=== PATIENT | female | born 1990 | race Caucasian/White ===

== ENCOUNTER 2016-10-31 07:44 | Emergency (ER) | payer OTHER, MEDICAID ==
[~2016-10-31 07:44] MED LIST: CYCL1TAB29 PO; DICL50TA3 PO; FERR325T PO; METO25TA6 PO; NAPR250T PO; VITA400C28 PO
[2016-10-31 07:48] VITALS: BP 157/78; PULSE 91; RESP 18; TEMP 97.9; O2SAT 99
--- NOTE | 2016-10-31 08:19 | RADRPT ---
EXAM DATE/TIME: 10/31/2016 07:52 [facility] COMPARISON: CHEST SINGLE AP, November 11, 2015, 23:52. INDICATIONS : Patient states chest pain and short of breath since this morning. MEDICAL HISTORY : None. SURGICAL HISTORY : None. ENCOUNTER: Initial ACUITY: 1 day PAIN SCORE: 7/10 LOCATION: chest Center FINDINGS: A single view of the chest demonstrates the lungs to be symmetrically aerated without evidence of mas s, infiltrate or effusion. The cardiomediastinal contours are unremarkable. Osseous structures are intact. CONCLUSION: No acute disease. Anthony Duff MD on October 31, 2016 at 8:17 Board Certified Radiologist. This report was verified electronically.
[2016-10-31 08:29] LABS: AUTOMATED NEUTROPHIL # 9.9 TH/MM3 (1.8-7.7); BASOPHIL % 0.3 % (0.0-2.0); EOSINOPHIL # 0.2 TH/MM3 (0-0.4); EOSINOPHIL % 1.2 % (0.0-4.0); HEMATOCRIT 38.1 % (35.0-46.0); LYMPH % 20.9 % (9.0-44.0); LYMPHOCYTE # 2.8 TH/MM3 (1.0-4.8); MEAN CELL VOLUME 82.2 FL (80.0-100.0); MEAN CORPUSCULAR HEMOGLOBIN 27.8 PG (27.0-34.0); MEAN CORPUSCULAR HGB CONC 33.8 % (32.0-36.0); MONO % 4.4 % (0.0-8.0); NEUT % 73.2 % (16.0-70.0); PLATELET COUNT 257 TH/MM3 (150-450); RED BLOOD COUNT 4.63 MIL/MM3 (4.00-5.30); RED CELL DISTRIBUTION WIDTH 14.3 % (11.6-17.2)
[2016-10-31 08:39] LABS: HEMO FLAGS AUTO DIFF
[2016-10-31 08:40] LABS: WHITE BLOOD COUNT 12.8 TH/MM3 (4.0-11.0)
[2016-10-31 08:41] LABS: ANION GAP 9 MEQ/L (5-15); BLOOD UREA NITROGEN 12 MG/DL (7-18); CHLORIDE 107 MEQ/L (98-107); GLOMERULAR FILTRATION RATE 106 ML/MIN (>89); POTASSIUM 4.6 MEQ/L (3.5-5.1); SODIUM (NA) 139 MEQ/L (136-145)
[2016-10-31 08:47] LABS: CREATINE KINASE 96 U/L (26-192)
[2016-10-31 08:48] VITALS: RESP 18; O2SAT 100
[2016-10-31] MEDS ORDERED: RANI150C PO (08:55)
[2016-10-31] MEDS ORDERED: PRED-503 PO (08:55)
--- NOTE | 2016-10-31 08:55 | PD ---
HPI Chief Complaint: Chest Pain Time Seen by Provider: 08:37 Travel History International Travel<30 days: No Contact w/Intl Traveler<30days: No Traveled to known affect area: No History of Present Illness HPI Since otherwise healthy 26-year-old woman who presents to the emergency department complaining that she woke up this morning with chest pain and some trouble breathing. She states she's also had unusual pretty crash involving her hands chest back and trunk as well as some on her legs. Been ongoing for the past couple days as well. Very itchy. She's never really had it before. She denies any recent travel, new exposures, new sexual partners, or any current change in activity level. She's had chest pain in the past that was bad enough for her to see a doctor was diagnosed with "inflammation". She also states her doctor a done blood work recently that showed inflammation but she didn't know where. She otherwise has been feeling generally well. Review of systems positive for some diarrhea. No other complaints. No vaginal discharge or vaginal bleeding. No nausea. No other symptoms. History Past Medical History Medical History: Denies Significant Hx Influenza Vaccination: No : 3 Para: 3 Social History Alcohol Use: No Tobacco Use: No Allergies-Medications (Allergen,Severity, Reaction): Coded Allergies: No Known Allergies (Verified , 07/24/16) Reported Meds & Prescriptions Reported Meds & Active Scripts Active Flexeril (Cyclobenzaprine HCl) 10 Mg Tab 10 Mg PO TID Diclofenac Sodium DR (Diclofenac Sodium) 50 Mg Tabdr 50 Mg PO TID Reported Naproxen 250 Mg Tab Unknown Dose PO BID Ferrous Sulfate 325 Mg Tab 325 Mg PO DAILY Vitamin D (Cholecalciferol) 400 Unit Cap Unknown Dose PO WEEKLY Metoprolol Succinate ER 24 HR (Metoprolol Succinate) 25 Mg Tab 25 Mg PO DAILY Review of Systems Except as stated in HPI: all other systems reviewed are Neg Physical Exam Narrative GENERAL: Well-appearing 26 year-old woman, no acute distress. SKIN: Warm and dry. There is some blotchy, blanching, red rash on her palms or soles, and a blotchy distribution on her back, as well as a couple areas on her thigh. There are no vesicles, pustules, or raised lesions. The area is a little bit warm. HEAD: Atraumatic. Normocephalic. EYES: Pupils equal and round. No scleral icterus. No injection or drainage. ENT: No nasal bleeding or discharge. Mucous membranes pink and moist. NECK: Trachea midline. No JVD. CARDIOVASCULAR: Regular rate and rhythm. No murmur appreciated. RESPIRATORY: No accessory muscle use. Clear to auscultation. Breath sounds equal bilaterally. GASTROINTESTINAL: Abdomen soft, non-tender, nondistended. Hepatic and splenic margins not palpable. MUSCULOSKELETAL: No obvious deformities. No clubbing. No cyanosis. No edema. NEUROLOGICAL: Awake and alert. No obvious cranial nerve deficits. Motor grossly within normal limits. Normal speech. PSYCHIATRIC: Appropriate mood and affect; insight and judgment normal. Data Data Last Documented VS Vital Signs Date Time Temp Pulse Resp B/P Pulse Ox O2 Delivery O2 Flow Rate FiO2 10/31/16 08:48 18 100 Room Air 10/31/16 08:42 96 10/31/16 07:48 97.9 157/78 Orders Electrocardiogram (10/31/16 07:50) Complete Blood Count With Diff (10/31/16 07:50) Basic Metabolic Panel (Bmp) (10/31/16 07:50) Ckmb (Isoenzyme) Profile (10/31/16 07:50) Troponin I (10/31/16 07:50) Chest, Single Ap (10/31/16 07:50) Iv Access Insert/Monitor (10/31/16 07:50) Ecg Monitoring (10/31/16 07:50) Oxygen Administration (10/31/16 07:50) Oximetry (10/31/16 07:50) Labs Laboratory Tests Test 10/31/16 08:10 White Blood Count 12.8 TH/MM3 Red Blood Count 4.63 MIL/MM3 Hemoglobin 12.9 GM/DL Hematocrit 38.1 % Mean Corpuscular Volume 82.2 FL Mean Corpuscular Hemoglobin 27.8 PG Mean Corpuscular Hemoglobin 33.8 % Concent Red Cell Distribution Width 14.3 % Platelet Count 257 TH/MM3 Mean Platelet Volume 9.4 FL Neutrophils (%) (Auto) 73.2 % Lymphocytes (%) (Auto) 20.9 % Monocytes (%) (Auto) 4.4 % Eosinophils (%) (Auto) 1.2 % Basophils (%) (Auto) 0.3 % Neutrophils # (Auto) 9.9 TH/MM3 Lymphocytes # (Auto) 2.8 TH/MM3 Monocytes # (Auto) 0.6 TH/MM3 Eosinophils # (Auto) 0.2 TH/MM3 Basophils # (Auto) 0.0 TH/MM3 CBC Comment AUTO DIFF Sodium Level 139 MEQ/L Potassium Level 4.6 MEQ/L Chloride Level 107 MEQ/L Carbon Dioxide Level 23.0 MEQ/L Anion Gap 9 MEQ/L Blood Urea Nitrogen 12 MG/DL Creatinine 0.68 MG/DL Estimat Glomerular Filtration 106 ML/MIN Rate Random Glucose 146 MG/DL Calcium Level 9.1 MG/DL Total Creatine Kinase 96 U/L Troponin I LESS THAN 0.02 NG/ML [facility] Medical Decision Making Medical Screen Exam Complete: Yes Emergency Medical Condition: Yes Interpretation(s) My review of EKG: Normal sinus rhythm at a rate of 90, normal axis, normal intervals, no ischemia. LABS: CBC remarkable for mild leukocytosis. BMP is unremarkable. Troponins negative. Chest x-rays negative. Differential Diagnosis Pericarditis, gastritis, pleurisy, PE, ACS, vasculitis, other Narrative Course Medical decision making 26 year-old woman presents emergency department with nondescript chest pain, history of "inflammation" and a unusual pruritic rash involving her hands and legs and arms and trunk. She looks overall well. I don't see any evidence of PE or heart problems. I wonder if she may have some mild pericarditis or pleurisy in the setting of some underlying rheumatologic disease. The rash is unusual but clearly seems warm and inflamed. It's not infectious. We'll plan on steroids, H2 blockers for GI protection, and close follow-up with her primary physician for further evaluation. Diagnosis Primary Impression: Chest pain Additional Instructions: Take prednisone as prescribed. Take ranitidine as prescribed. Follow-up with your primary doctor in the next 2-3 days. Return to the emergency department for any worsening chest pain, trouble breathing, or any other new or worsening symptoms. Med/Other Pt SpecificInfo: Prescription(s) given Scripts Ranitidine 150 Mg Xyd850 Mg PO BID #60 CAP Prov:Niarv Arrieta MD 10/31/16 Prednisone (Deltasone)20 Mg Tab40 Mg PO DAILY 10 Days Prov:Nirav Arrieta MD 10/31/16 Disposition: 01 DISCHARGE HOME Condition: Stable Nirav Arrieta MD Oct 31, 2016 08:55
[2016-10-31 09:24] LABS: PLATELET ESTIMATE SMEAR NORMAL (NORMAL); PLATELET MORPHOLOGY CLUMPED (NORMAL); SCAN/DIFF AUTO DIFF CONFIRMED
[2016-10-31] MEDS ORDERED: KETOROLAC TROMETHAMINE 60 MG/2 ML (IM) VIAL IM ONE (09:30)
--- NOTE | 2016-10-31 14:37 | EKG ---
Date Performed: 10/31/2016 Time Performed: 08:03:11 PTAGE: 26 years EKG: Sinus rhythm NORMAL ECG Compared to prior tracing no significant change PREVIOUS TRACING : 11/11/2015 23.44 DOCTOR: Harry Trent Interpretating Date/Time 10/31/2016 14:36:02
== END 2016-10-31 10:00 | disposition home or self-care (01) ==
LOC: NEPE 07:44
DX: R07.9 Chest pain, unspecified (principal)
CPT/HCPCS: 71010; 80048; 82550; 84484; 85025; 93005; 96372; 99285; J1885

== ENCOUNTER 2017-02-27 16:46 | Emergency (ER) | payer OTHER, MEDICAID ==
[~2017-02-27] VITALS: Ht 152.4 cm; Wt 110.0 kg
[~2017-02-27 16:46] MED LIST changes: +PRED-503 PO; +RANI150C PO
[2017-02-27 16:48] VITALS: BP 134/78; PULSE 105; RESP 20; TEMP 99.6; O2SAT 100
--- NOTE | 2017-02-27 17:01 | PD ---
Physical Exam Time Seen by Provider: 17:00 Narrative 26 y/o female here with RLQ abdominal pain for one day. Vital signs reviewed. Seen at triage desk. Awaiting bed placement. Data Data Last Documented VS Vital Signs Date Time Temp Pulse Resp B/P Pulse Ox O2 Delivery O2 Flow Rate FiO2 02/27/17 16:48 99.6 105 20 134/78 100 Room Air [facility] Medical Record Reviewed: Yes Supervised Visit with CARLOS: Sunday Neil Feb 27, 2017 17:01
--- NOTE | 2017-02-27 17:12 | PD ---
HPI Chief Complaint: Abdominal Pain Time Seen by Provider: 17:12 Travel History International Travel<30 days: No Contact w/Intl Traveler<30days: No Traveled to known affect area: No History of Present Illness HPI 26-year-old female with no significant medical history presents for evaluation right lower quadrant pain. Patient states it started this morning and has gotten worse. It's been worse with ambulation. It is sharp and stabbing. Patient denies any urinary symptoms. No bowel changes. She is on her menstrual cycle. Denies fever or chills. No nausea or vomiting. Patient has had C-sections but no other abdominal surgeries. No other symptoms to report. PFSH Past Medical History Medical History: Denies Significant Hx Diminished Hearing: No Immunizations Current: Yes Migraines: Yes ?: Not LMP: CURRENTLY ON : 3 Para: 3 Past Surgical History Section: Yes (x3, 1 premie 10 wks early) Oral Surgery: Yes (WISDOM TEETH) Social History Alcohol Use: No Tobacco Use: No Substance Use: No Allergies-Medications (Allergen,Severity, Reaction): Coded Allergies: No Known Allergies (Verified , 02/27/17) Reported Meds & Prescriptions Reported Meds & Active Scripts Active Naproxen 500 Mg Tab 500 Mg PO BID PRN Pyridium (Phenazopyridine HCl) 100 Mg Tab 100 Mg PO Q8H PRN Doxycycline Hyclate 100 Mg Cap 100 Mg PO BID Review of Systems Except as stated in HPI: all other systems reviewed are Neg Physical Exam Narrative GENERAL: These female patient, in no acute distress SKIN: Focused skin assessment warm/dry. HEAD: Atraumatic. Normocephalic. EYES: Pupils equal and round. No scleral icterus. No injection or drainage. ENT: No nasal bleeding or discharge. Mucous membranes pink and moist. NECK: Trachea midline. No JVD. CARDIOVASCULAR: Tachycardic rate and rhythm. No murmur appreciated. RESPIRATORY: No accessory muscle use. Clear to auscultation. Breath sounds equal bilaterally. GASTROINTESTINAL: Abdomen soft, nondistended. Suprapubic tenderness to palpation. No guarding. No rebound tenderness. Hepatic and splenic margins not palpable. GENITOURINARY: Normal external genitalia without lesions or erythema. Vaginal vault with blood. Cervical os was closed with bloody drainage. No cervical motion tenderness. Uterus nontender and nonenlarged. Bilateral adnexa nontender without masses. MUSCULOSKELETAL: No obvious deformities. No clubbing. No cyanosis. No edema. NEUROLOGICAL: Awake and alert. No obvious cranial nerve deficits. Motor grossly within normal limits. Normal speech. PSYCHIATRIC: Appropriate mood and affect; insight and judgment normal. Data Data Last Documented VS Vital Signs Date Time Temp Pulse Resp B/P Pulse Ox O2 Delivery O2 Flow Rate FiO2 02/27/17 19:14 88 18 140/85 95 Room Air 02/27/17 16:48 99.6 Orders Complete Blood Count With Diff (02/27/17 17:01) Comprehensive Metabolic Panel (02/27/17 17:01) Lipase (02/27/17 17:01) Urinalysis - C+S If Indicated (02/27/17 17:01) Ed Urine Pregnancytest Poc (02/27/17 17:01) Iv Access Insert/Monitor (02/27/17 17:14) Sodium Chlor 0.9% 1000 Ml Inj (Ns 1000 M (02/27/17 17:15) Ct Abd/Pel W Iv Contrast(Rout) (02/27/17 ) Urine Culture (02/27/17 17:15) Piperacil-Tazo 3.375 Gm Premix (Zosyn 3. (02/27/17 19:00) Ondansetron Inj (Zofran Inj) (02/27/17 19:00) Morphine Inj (Morphine Inj) (02/27/17 19:00) Iohexol 350 Inj (Omnipaque 350 Inj) (02/27/17 19:28) Wet Prep Profile (02/27/17 20:23) Gc And Chlamydia Pcr (02/27/17 20:23) Ketorolac Inj (Toradol Inj) (02/27/17 20:30) Labs Laboratory Tests Test 02/27/17 02/27/17 02/27/17 17:15 17:22 20:20 Urine Color RED Urine Turbidity HAZY Urine pH 6.0 Urine Specific [place] 1.027 Urine Protein 100 mg/dL Urine Glucose (UA) NEG mg/dL Urine Ketones 10 mg/dL Urine Occult Blood LARGE Urine Nitrite NEG Urine Bilirubin NEG Urine Urobilinogen 8.0 MG/DL Urine Leukocyte Esterase LARGE Urine RBC /hpf Urine WBC 76 /hpf Urine Squamous Epithelial 14 /hpf Cells Urine Amorphous Sediment RARE Urine Bacteria OCC /hpf Urine Mucus FEW /lpf Microscopic Urinalysis Comment CULTURE INDICATED White Blood Count 19.0 TH/MM3 Red Blood Count 4.59 MIL/MM3 Hemoglobin 12.7 GM/DL Hematocrit 38.0 % Mean Corpuscular Volume 82.8 FL Mean Corpuscular Hemoglobin 27.7 PG Mean Corpuscular Hemoglobin 33.4 % Concent Red Cell Distribution Width 14.4 % Platelet Count 315 TH/MM3 Mean Platelet Volume 9.0 FL Neutrophils (%) (Auto) 86.9 % Lymphocytes (%) (Auto) 10.0 % Monocytes (%) (Auto) 2.5 % Eosinophils (%) (Auto) 0.3 % Basophils (%) (Auto) 0.3 % Neutrophils # (Auto) 16.5 TH/MM3 Lymphocytes # (Auto) 1.9 TH/MM3 Monocytes # (Auto) 0.5 TH/MM3 Eosinophils # (Auto) 0.1 TH/MM3 Basophils # (Auto) 0.1 TH/MM3 CBC Comment DIFF FINAL Differential Comment Sodium Level 138 MEQ/L Potassium Level 3.4 MEQ/L Chloride Level 103 MEQ/L Carbon Dioxide Level 26.8 MEQ/L Anion Gap 8 MEQ/L Blood Urea Nitrogen 8 MG/DL Creatinine 0.77 MG/DL Estimat Glomerular Filtration 92 ML/MIN Rate Random Glucose 94 MG/DL Calcium Level 8.6 MG/DL Total Bilirubin 0.9 MG/DL Aspartate Amino Transf 27 U/L (AST/SGOT) Alanine Aminotransferase 49 U/L (ALT/SGPT) Alkaline Phosphatase 46 U/L Total Protein 8.1 GM/DL Albumin 3.6 GM/DL Lipase 99 U/L Clue Cells (Wet Prep) NONE SEEN Vaginal Trichomonas (Wet Prep) NONE SEEN Vaginal Yeast (Wet Prep) NONE SEEN MDM Medical Decision Making Medical Screen Exam Complete: Yes Emergency Medical Condition: Yes Medical Record Reviewed: Yes Differential Diagnosis Appendicitis versus PID versus UTI versus renal calculi Narrative Course 26 year-old female presents to emergency department for evaluation right lower quadrant pain. Upon assessment, patient has mild suprapubic tenderness. No CMT on pelvic exam. Patient is on her menses. She has a white count of 19, 000. Despite bleeding from her menses, there is still a large amount of white blood cells in her urine. Laboratory Tests Test 02/27/17 02/27/17 02/27/17 17:15 17:22 20:20 Urine Color RED Urine Turbidity HAZY Urine pH 6.0 Urine Specific [place] 1.027 Urine Protein 100 mg/dL Urine Glucose (UA) NEG mg/dL Urine Ketones 10 mg/dL Urine Occult Blood LARGE Urine Nitrite NEG Urine Bilirubin NEG Urine Urobilinogen 8.0 MG/DL Urine Leukocyte Esterase LARGE Urine RBC /hpf Urine WBC 76 /hpf Urine Squamous Epithelial 14 /hpf Cells Urine Amorphous Sediment RARE Urine Bacteria OCC /hpf Urine Mucus FEW /lpf Microscopic Urinalysis Comment CULTURE INDICATED White Blood Count 19.0 TH/MM3 Red Blood Count 4.59 MIL/MM3 Hemoglobin 12.7 GM/DL Hematocrit 38.0 % Mean Corpuscular Volume 82.8 FL Mean Corpuscular Hemoglobin 27.7 PG Mean Corpuscular Hemoglobin 33.4 % Concent Red Cell Distribution Width 14.4 % Platelet Count 315 TH/MM3 Mean Platelet Volume 9.0 FL Neutrophils (%) (Auto) 86.9 % Lymphocytes (%) (Auto) 10.0 % Monocytes (%) (Auto) 2.5 % Eosinophils (%) (Auto) 0.3 % Basophils (%) (Auto) 0.3 % Neutrophils # (Auto) 16.5 TH/MM3 Lymphocytes # (Auto) 1.9 TH/MM3 Monocytes # (Auto) 0.5 TH/MM3 Eosinophils # (Auto) 0.1 TH/MM3 Basophils # (Auto) 0.1 TH/MM3 CBC Comment DIFF FINAL Differential Comment Sodium Level 138 MEQ/L Potassium Level 3.4 MEQ/L Chloride Level 103 MEQ/L Carbon Dioxide Level 26.8 MEQ/L Anion Gap 8 MEQ/L Blood Urea Nitrogen 8 MG/DL Creatinine 0.77 MG/DL Estimat Glomerular Filtration 92 ML/MIN Rate Random Glucose 94 MG/DL Calcium Level 8.6 MG/DL Total Bilirubin 0.9 MG/DL Aspartate Amino Transf 27 U/L (AST/SGOT) Alanine Aminotransferase 49 U/L (ALT/SGPT) Alkaline Phosphatase 46 U/L Total Protein 8.1 GM/DL Albumin 3.6 GM/DL Lipase 99 U/L Clue Cells (Wet Prep) NONE SEEN Vaginal Trichomonas (Wet Prep) NONE SEEN Vaginal Yeast (Wet Prep) NONE SEEN Last Impressions Abdomen/Pelvis CT 02/27/17 0000 Signed Impressions: Service Date/Time: February 19:24 - CONCLUSION: 1. Left ovarian dermoid cyst. 2. Hepatic steatosis. Anibal Leal MD I discussed the patient's attending physician. Patient will be discharged on doxycycline. Have reviewed the findings with the patient. She is encouraged to seek outpatient follow-up with [facility]. He agrees to return immediately with any acute worsening symptoms. Diagnosis Primary Impression: Lower abdominal pain Additional Impressions: UTI (urinary tract infection) Qualified Code: N30.01 - Acute cystitis with hematuria Leukocytosis Qualified Code: D72.829 - Leukocytosis, unspecified type Referrals: [facility] [employer] Primary Care Physician Patient Instructions: Abdominal Pain (ED), General Instructions Additional Instructions: Follow-up with a primary care provider Seek oncology evaluation Start antibiotic in the morning and take it until it is all gone Return immediately with any acute worsening of symptoms Med/Other Pt SpecificInfo: Prescription(s) given Scripts Naproxen 500 Mg [id number] Mg PO BID PRN (PAIN SCALE 1 TO 10) #30 TAB Ref 0 Prov:Evelyn Chappell 02/27/17 Phenazopyridine (Pyridium)100 Mg Pra245 Mg PO Q8H PRN (DYSURIA) #12 TAB Ref 0 Prov:Evelyn Chappell 02/27/17 Doxycycline Hyclate 100 Mg Qqt956 Mg PO BID #20 CAP Ref 0 Prov:Evelyn Chappell 02/27/17 Disposition: 01 DISCHARGE HOME Condition: Stable Evelyn Chappell Feb 27, 2017 17:12
[2017-02-27] MEDS ORDERED: SODIUM CHLOR 0.9% 1000 ML INJ 1,000 ML IV ONE (17:15)
[2017-02-27 17:59] LABS: AUTOMATED NEUTROPHIL # 16.5 TH/MM3 (1.8-7.7); BASOPHIL # 0.1 TH/MM3 (0-0.2); BASOPHIL % 0.3 % (0.0-2.0); EOSINOPHIL # 0.1 TH/MM3 (0-0.4); EOSINOPHIL % 0.3 % (0.0-4.0); HEMO FLAGS DIFF FINAL; LYMPHOCYTE # 1.9 TH/MM3 (1.0-4.8); MEAN CELL VOLUME 82.8 FL (80.0-100.0); MEAN CORPUSCULAR HEMOGLOBIN 27.7 PG (27.0-34.0); MEAN CORPUSCULAR HGB CONC 33.4 % (32.0-36.0); MONO % 2.5 % (0.0-8.0); NEUT % 86.9 % (16.0-70.0); PLATELET COUNT 315 TH/MM3 (150-450); RED BLOOD COUNT 4.59 MIL/MM3 (4.00-5.30); RED CELL DISTRIBUTION WIDTH 14.4 % (11.6-17.2)
[2017-02-27 18:02] LABS: BACTERIA, URINE OCC /hpf; BLOOD, URINE LARGE (NEG); COMMENT (UR) CULTURE INDICATED; CULTURE IF INDICATED CULTURE INDICATED; GLUCOSE,URINE NEG (NEG); KETONE, URINE 10 mg/dL (NEG); MUCUS URINE FEW /lpf (OCC); NITRITE,URINE NEG (NEG); SQUAMOUS EPITHELIAL CELL URINE 14 /hpf (0-5); URINE COLOR RED (YELLW/STRAW)
[2017-02-27 18:14] LABS: ALT (GPT) 49 U/L (10-53); ANION GAP 8 MEQ/L (5-15); AST (GOT) 27 U/L (15-37); BICARBONATE 26.8 MEQ/L (21.0-32.0); BLOOD UREA NITROGEN 8 MG/DL (7-18); CHLORIDE 103 MEQ/L (98-107); GLOMERULAR FILTRATION RATE 92 ML/MIN (>89); POTASSIUM 3.4 MEQ/L (3.5-5.1); SODIUM (NA) 138 MEQ/L (136-145)
[2017-02-27 18:16] LABS: ALKALINE PHOSPHATASE 46 U/L (45-117); TOTAL BILIRUBIN ADULT 0.9 MG/DL (0.2-1.0)
[2017-02-27 18:36] VITALS: BP 133/85; PULSE 102; RESP 17; O2SAT 100
[2017-02-27] MEDS ORDERED: ONDANSETRON HCL 4 MG/2 ML VIAL IV PUSH ONE (19:00)
[2017-02-27] MEDS ORDERED: PIPERACIL-TAZO 3.375 GM PREMIX 50 ML IV ONE (19:00)
[2017-02-27] MEDS ORDERED: MORPHINE SULFATE 8 MG/ML INJ IV PUSH ONE (19:00)
[2017-02-27 19:14] VITALS: BP 140/85; PULSE 88; RESP 18; O2SAT 95
[2017-02-27] MEDS ORDERED: IOHEXOL 350 MG/ML 10 ML VIAL (for RAD DIAG) IV ONE (19:28)
--- NOTE | 2017-02-27 19:38 | RADRPT ---
EXAM DATE/TIME: 02/27/2017 19:24 [facility] COMPARISON: No previous studies available for comparison. INDICATIONS : Bilateral lower quadrant pain. IV CONTRAST: 75 cc Omnipaque 350 (iohexol) IV ORAL CONTRAST: No oral contrast ingested. RADIATION DOSE: 23.97 CTDIvol (mGy) MEDICAL HISTORY : None SURGICAL HISTORY : section. ENCOUNTER: Initial ACUITY: 1 day PAIN SCALE: 8/10 LOCATION: Bilateral lower quadrant TECHNIQUE: Volumetric scanning of the abdomen and pelvis was performed. Using automated exposure control and ad justment of the mA and/or kV according to patient size, radiation dose was kept as low as reasonably achievable to obtain optimal diagnostic quality images. DICOM format image data is available electro nically for review and comparison. FINDINGS: There is diffuse hepatic steatosis. Cholelithiasis is noted. Kidneys, spleen, pancreas, adrenal gland s, stomach unremarkable. Appendix normal. Urinary bladder, uterus unremarkable. IUD within the uterus . At the expected location of the left ovary there is a mixed predominantly fat attenuation mass christie uring 5.6 x 3.9 cm in AP and transverse dimension with imaging features characteristic of an ovarian dermoid. CONCLUSION: 1. Left ovarian dermoid cyst. 2. Hepatic steatosis. Anibal Leal MD on February 27, 2017 at 19:34 Board Certified Radiologist. This report was verified electronically.
[2017-02-27] MEDS ORDERED: DOXY100C PO (20:27)
[2017-02-27] MEDS ORDERED: PHEN0.4T PO (20:27)
[2017-02-27] MEDS ORDERED: NAPR500T PO (20:27)
[2017-02-27] MEDS ORDERED: KETOROLAC TROMETHAMINE 30 MG/ML (IVP) VIAL IV PUSH ONE (20:30)
[2017-02-27 23:17] LABS: CHLAMYDIA PCR NOT DETECTED (NOT DETECT); NEISSERIA PCR NOT DETECTED (NOT DETECT)
== END 2017-02-27 21:05 | disposition home or self-care (01) ==
LOC: NEPC 16:46
DX: N30.01 Acute cystitis with hematuria (principal); B96.20 Unspecified Escherichia coli [E. coli] as the cause of diseases classified elsewhere
CPT/HCPCS: 74177; 80053; 81001; 83690; 84703; 85025; 87077; 87086; 87186; 87210; 87491; 87591; 96365; 96375; 99285; J1885; J2270; J2405; J2543; J7030; Q9967